=== PATIENT | male | born 1990 ===

== ENCOUNTER 2021-03-23 10:14 | Emergency (ER) | payer MEDICAID ==
[2021-03-23] MEDS ORDERED: EPINEPHrine 1:10,000 1 MG/10 ML Syringe IV ONE (10:15)
[2021-03-23] MEDS ORDERED: Sodium Chloride 0.9% 10 ML Syringe FLUSH PRN (10:44)
[2021-03-23 10:55] LABS: ANION GAP 28.2 mEq/L (7-13); CHLORIDE,CL 106 mmol/L (98-107); SODIUM,NA 146 mmol/L (136-145)
[2021-03-23 11:09] LABS: O2 DELIVERY DEVICE VENTILATOR
[2021-03-23 11:11] LABS: ALLEN TEST POSITIVE; BASE EXCESS ARTERIAL -18 mmol/L ((-2)-(+3)); BICARBONATE,ARTERIAL 9.8 mmol/L (22-26); O2 SATURATION ARTERIAL 96 % (95-100); PCO2 ARTERIAL 27 mmHg (35-45); PO2 ARTERIAL 507 mmHg (70-100)
--- NOTE | 2021-03-23 11:28 | CR ---
PROCEDURE INFORMATION: Exam: XR Chest Exam date and time: 03/23/2021 10:31 AM Age: 34 years old Clinical indication: Device placement; Patient HX: Patient electrocuted. ; Additional info: Code blue TECHNIQUE: Imaging protocol: XR of the chest. Views: 1 view. COMPARISON: No relevant prior studies available. FINDINGS: Tubes, catheters and devices: Endotracheal tube 3.9 cm above the kolton. Lungs: Unremarkable. No consolidation. Pleural spaces: Unremarkable. No pleural effusion. No pneumothorax. Heart/Mediastinum: Unremarkable. No cardiomegaly. Bones/joints: Unremarkable. IMPRESSION: No acute cardiopulmonary findings.
--- NOTE | 2021-03-23 12:05 | EDM.PDOC ---
Scribed by Jo-Ann Sanchez 03/23/21 1140 for Payton Moody MD ED HPI GENERAL MEDICAL PROBLEM - General Chief Complaint: CPR in Progress Stated Complaint: YASMEEN HANSEN [id number] Time Seen by Provider: 03/23/21 10:14 Source of Information: Reports: Patient, EMS, EMS Notes Reviewed, RN, RN Notes Reviewed - History of Present Illness INITIAL COMMENTS - FREE TEXT/NARRATIVE: Patient arrives to ED by [facility] with CPR being performed. Per EMS patient had been mowing the lawn and hit an extension cord electrocuting himself. This was witnessed and CPR was started by friends who also called 911. This occurred about 9:55 am. EMS arrived a little after 10 o'clock and documented V-fib and started ACLS protocol. When patient arrived in the ER he had just received his second shock and second epinephrine and CPR had resumed. He was given Lidocaine in the field, was intubated and had an IO in the right. I spoke with friends who witnessed the event. Friends have a generator that they made out of a microwave to etch wood. They were in the process of setting it up so he could use it safely. He picked up the generator and turned it on. He then grabbed the consumer banker with his left hand completing the circuit of electricity electrocuting himself. Friends immediately called 911 and started Onset: Today Severity: Severe - Related Data Allergies Allergy/AdvReac Type Severity Reaction Status Date / Time Penicillins Allergy Cannot Verified 03/23/21 10:48 Remember ED ROS GENERAL - Review of Systems Review Of Systems: Unable To Obtain Reason Not Obtained: Unresponsive ED EXAM, CPR - Physical Exam Exam: See Below Limited By: Unresponsive Eye Exam: Bilateral Eye: Other (fixed pupils) Ears: Normal External Exam, Normal TMs Nose: Normal Inspection, No Blood Throat/Mouth: Other (intubated on arrival) Head: Atraumatic Respiratory Chest: Other (intubated) Cardiovascular: CPR In Progress GI/Abdominal Exam: Soft, No Distention Extremities: Other ([place] noted on left hand) Neurological: Unresponsive Course - Orders/Labs/Meds Orders: Active Orders 24 hr Category Date Time Status EKG Documentation Completion [RC] STAT Care 03/23/21 10:44 Active Peripheral IV Care [RC] . DIRECTED Care 03/23/21 10:46 Active Sodium Chloride 0.9% [Saline Flush] Med 03/23/21 10:44 Active 10 ml FLUSH ASDIRECTED PRN Peripheral IV Insertion Adult [OM.PC] Stat Oth 03/23/21 10:44 Ordered Medication Orders Sodium Chloride (Sodium Chloride 0.9% 10 Ml Syringe) 10 ml FLUSH ASDIRECTED PRN PRN Reason: Keep Vein Open Labs: Laboratory Tests 03/23/21 03/23/21 03/23/21 Range/Units 10:26 10:26 10:41 WBC 12.3 H (5.0-10.0) 10^3/uL RBC 5.43 (4.6-6.2) 10^6/uL Hgb 16.6 (14.0-18.0) g/dL Hct 49.4 (40.0-54.0) % MCV 91.0 (80-100) fL MCH 30.6 (27.0-34.0) pg MCHC 33.6 (33.0-35.0) g/dL Plt Count 118 L (150-450) 10^3/uL Neut % (Auto) 36.7 L (42.2-75.2) % Lymph % (Auto) 57.4 H (20.5-50.1) % [place] % (Auto) 5.4 (2-8) % Eos % (Auto) 0.3 L (1.0-3.0) % Baso % (Auto) 0.2 (0.0-1.0) % ABG pH (7.35-7.45) ABG pCO2 (35-45) mmHg ABG pO2 (70-100) mmHg ABG HCO3 (22-26) mmol/L ABG O2 Saturation (95-100) % ABG Base Excess ((-2)-(+3)) mmol/L Walter Test O2 Delivery Device Sodium 146 H (136-145) mmol/L Potassium 4.2 (3.5-5.1) mmol/L Chloride 106 (98-107) mmol/L Carbon Dioxide 16 L (21-32) mmol/L Anion Gap 28.2 H (7-13) mEq/L BUN 20 H (7-18) mg/dL Creatinine 1.45 H (0.70-1.30) mg/dL Est Cr Clr Drug Dosing TNP Estimated GFR (MDRD) 58 BUN/Creatinine Ratio 13.8 (No establ ref range) Glucose 126 H (70-99) mg/dL Lactic Acid (0.4-2.0) mmol/L Calcium 8.6 (8.5-10.1) mg/dL Total Bilirubin 1.4 H (0.2-1.0) mg/dL AST 62 H (15-37) U/L ALT 54 (16-63) U/L Alkaline Phosphatase 66 (46-116) U/L Total Protein 6.5 (6.4-8.2) g/dL Albumin 3.4 (3.4-5.0) g/dL Globulin 3.1 Albumin/Globulin Ratio 1.1 Urine Opiates Screen Negative (NEGATIVE) Ur Oxycodone Screen Negative (NEGATIVE) Urine Methadone Screen Negative (NEGATIVE) Ur Barbiturates Screen Negative (NEGATIVE) U Tricyclic Antidepress Negative (NEGATIVE) Ur Phencyclidine Scrn Negative (NEGATIVE) Ur Amphetamine Screen Positive H (NEGATIVE) U Methamphetamines Scrn Positive H (NEGATIVE) Urine MDMA Screen Positive H (NEGATIVE) U Benzodiazepines Scrn Negative (NEGATIVE) Urine Cocaine Screen Negative (NEGATIVE) U Marijuana (THC) Screen Positive H (NEGATIVE) Ethyl Alcohol < 3 (0) mg/dL 03/23/21 03/23/21 Range/Units 10:45 11:07 WBC (5.0-10.0) 10^3/uL RBC (4.6-6.2) 10^6/uL Hgb (14.0-18.0) g/dL Hct (40.0-54.0) % MCV (80-100) fL MCH (27.0-34.0) pg MCHC (33.0-35.0) g/dL Plt Count (150-450) 10^3/uL Neut % (Auto) (42.2-75.2) % Lymph % (Auto) (20.5-50.1) % [place] % (Auto) (2-8) % Eos % (Auto) (1.0-3.0) % Baso % (Auto) (0.0-1.0) % ABG pH 7.18 L* (7.35-7.45) ABG pCO2 27 L (35-45) mmHg ABG pO2 507 H (70-100) mmHg ABG HCO3 9.8 L (22-26) mmol/L ABG O2 Saturation 96 (95-100) % ABG Base Excess -18 L ((-2)-(+3)) mmol/L Walter Test Positive O2 Delivery Device Ventilator Sodium (136-145) mmol/L Potassium (3.5-5.1) mmol/L Chloride (98-107) mmol/L Carbon Dioxide (21-32) mmol/L Anion Gap (7-13) mEq/L BUN (7-18) mg/dL Creatinine (0.70-1.30) mg/dL Est Cr Clr Drug Dosing Estimated GFR (MDRD) BUN/Creatinine Ratio (No establ ref range) Glucose (70-99) mg/dL Lactic Acid 10.4 H* (0.4-2.0) mmol/L Calcium (8.5-10.1) mg/dL Total Bilirubin (0.2-1.0) mg/dL AST (15-37) U/L ALT (16-63) U/L Alkaline Phosphatase (46-116) U/L Total Protein (6.4-8.2) g/dL Albumin (3.4-5.0) g/dL Globulin Albumin/Globulin Ratio Urine Opiates Screen (NEGATIVE) Ur Oxycodone Screen (NEGATIVE) Urine Methadone Screen (NEGATIVE) Ur Barbiturates Screen (NEGATIVE) U Tricyclic Antidepress (NEGATIVE) Ur Phencyclidine Scrn (NEGATIVE) Ur Amphetamine Screen (NEGATIVE) U Methamphetamines Scrn (NEGATIVE) Urine MDMA Screen (NEGATIVE) U Benzodiazepines Scrn (NEGATIVE) Urine Cocaine Screen (NEGATIVE) U Marijuana (THC) Screen (NEGATIVE) Ethyl Alcohol (0) mg/dL Meds: Medications Generic Name Dose Route Start Last Admin Trade Name Freq PRN Reason Stop Dose Admin Sodium Chloride 10 ml 03/23/21 10:44 Sodium Chloride 0.9% 10 Ml Syringe FLUSH ASDIRECTED PRN Keep Vein Open - Re-Assessments/Exams Free Text/Narrative Re-Assessment/Exam: First rhythm check in the ER showed PEA and ACLS was continued, see code blue flow sheet for more details. ROSC was obtained at 1029. Labs have been collected and are pending. X-ray completed to confirm endotracheal placement. Pt was starting to attempt to breath on his own. [facility] was contacted for Level [address] Ceja in the ER accepting. [facility] was contacted and arrived to transport the pt. Departure - Departure Time of Disposition: 11:47 Disposition: DC/Tfer to Acute Hospital 02 Condition: Serious Clinical Impression: Cardiac arrest - Discharge Information *PRESCRIPTION DRUG MONITORING PROGRAM REVIEWED*: Not Applicable *COPY OF PRESCRIPTION DRUG MONITORING REPORT IN PATIENT OLGA: Not Applicable - My Orders Last 24 Hours: My Active Orders 03/23/21 10:44 EKG Documentation Completion [RC] STAT Sodium Chloride 0.9% [Saline Flush] 10 ml FLUSH ASDIRECTED PRN Peripheral IV Insertion Adult [OM.PC] Stat 03/23/21 10:46 Peripheral IV Care [RC] . DIRECTED - Assessment/Plan Last 24 Hours: My Active Orders 03/23/21 10:44 EKG Documentation Completion [RC] STAT Sodium Chloride 0.9% [Saline Flush] 10 ml FLUSH ASDIRECTED PRN Peripheral IV Insertion Adult [OM.PC] Stat 03/23/21 10:46 Peripheral IV Care [RC] . DIRECTED I have read and agree with the documentation that has been completed regarding this visit. By signing this record, I attest that the documentation was completed in my physical presence and is an accurate record of the encounter.
== END 2021-03-23 11:51 ==
LOC: EDBD → DL.ED 10:14
DX: I46.9 Cardiac arrest, cause unspecified (principal); Z88.0 Allergy status to penicillin
CPT/HCPCS: 36415; 36600; 43752; 51702; 71045; 80053; 80305-QW; 80307; 82803; 83605; 85025; 92950; 93005; 99284; 99285-25; J0171